=== PATIENT | male | born 1955 | race Caucasian/White ===

== ENCOUNTER 2016-07-10 08:14 | Outpatient (CLI) | payer BC ==
[2014-08-05 21:08] VITALS: BP 120/69
[2016-07-10 11:15] LABS: eGFR (African) > 60; eGFR (Non-African) > 60
--- NOTE | 2016-07-11 07:37 | Diagnostic Imaging Report ---
[facility] [address] [facility].[address] [address] Report Submission Date: Jul 10, 2016 4:36:10 PM GOODWILL AMBASSADOR Patient Study Name: JAQUI WITT Date: Jul 10, 2016 11:20:00 AM GOODWILL AMBASSADOR Modality Type: CT\SR Gender: M Description: CT ABD & PELVIS W/ CON : 51 Institution: [facility] Physician: DARIUSZ PRIETO MD Computed tomography of the abdomen and pelvis with contrast History: Abdominal patent renal artery stenosis Findings: Transverse abdomen and pelvis sections are obtained after intravenous omnipaque 350. Calcified right thoracic granulomas, septal occlusion device, calcified splenic granulomas, partial gallbladder contraction, left renal peripelvic cyst, and normal appendix are observed. The liver, spleen, pancreas, adrenals, and kidneys are otherwise normal. Bowel loops exhibit normal caliber and wall thickness. No acute abnormality is observed in the abdomen. Moderate colonic stool is present. Pelvic sections reveal moderate sigmoid colon stool and unremarkable urinary bladder. Prostate calcifications are observed. The seminal vesicles are unremarkable. No acute pelvic abnormality is identified. Impression: 1. Moderate colonic stool. 2. Septal occlusion device. 3. No acute abnormality is observed. Electronically signed on Jul 10, 2016 4:36:10 PM GOODWILL AMBASSADOR by: Antoine BUTLER
== END 2016-07-10 08:15 ==
LOC: RAD 08:14
PROVIDERS: ATTEND Family Medicine
DX: R10.10 Upper abdominal pain, unspecified (principal)
CPT/HCPCS: 74177; 82565; Q9966; A9698

== ENCOUNTER 2016-07-18 08:27 | Day surgery (SDC) | payer BC ==
[2014-08-05 21:08] VITALS: BP 120/69
[~2016-07-18 08:27] MED LIST: LIDOCAINE HCL/PF 2% 100 MG/5 ML VIAL IJ ONE; NORMAL SALINE 1,000 ML IV.SOLN IV ONE; PROPOFOL 200 MG/20 ML VIAL IV ONE; SALINE FLUSH 10 ML DISP.SYRIN IVF ONE; ePHEDrine SULFATE 50 MG/1 ML IVP ONE
--- NOTE | 2016-07-18 15:04 | Operative Note ---
SURGEON: Yon Marinelli MD ANESTHESIA: MAC anesthesia. ESTIMATED BLOOD LOSS: None. PREOPERATIVE DIAGNOSES: 1. History of colon polyps. 2. Change in bowel habits. POSTOPERATIVE DIAGNOSIS: Normal colonoscopy. PROCEDURE PERFORMED: Colonoscopy to cecum. DESCRIPTION OF PROCEDURE: Patient was brought to the endoscopy suite and placed in the left lateral decubitus position. A rectal examination was performed which was normal. The colonoscope was inserted and passed easily to the cecum. The appendiceal orifice and ileocecal valve were identified. The prep was adequate. There was excellent visualization with washing. The colonoscope was slowly retracted being careful to inspect all srinivasan. No polyps or other lesions were noted. The colonoscope was removed. FINDINGS: Normal colonoscopy. RECOMMENDATIONS: I recommend a repeat colonoscopy in 5 years due to his history of colon polyps. CARRIE
== END 2016-07-18 08:30 ==
LOC: OPSURG 08:27
PROVIDERS: ATTEND Colon & Rectal Surgery
DX: Z86.010 Personal history of colon polyps (principal); R19.4 Change in bowel habit
CPT/HCPCS: 45378; J2001; J2704; J7030; S1016

== ENCOUNTER 2016-08-06 18:19 | Emergency (ER) | payer BC ==
--- NOTE | 2016-08-06 18:45 | ED Physician Documentation ---
Abdominal Pain - HISTORIAN Historian: patient - HPI Stated Complaint: abd pain Onset: hours (12 hours) Duration: waxing, waning Timing: still present Context: denies: out of country travel, bad food Severity: moderate Quality: pain Associated Symptoms: fever, nausea. denies: chills, vomiting, coffee ground emesis, bloody emesis, diarrhea, bloody stools, grossly bloody stools Exacerbated by: nothing Relieved by: nothing Further Comments: yes (Patient states that he has been having some right groin pain with radiation into the right teticle and into his back. No precipitating factor noted. No modifying factors noted. No hematuria noted. ? mild fever, no chill. Has been nauseated some, has had some diaphoresis at times, no vomiting, no diarhea or constipation noted. Colonsoscopy done 2 week ago and was normal.) - ROS CONST: no problems - SOCIAL HX Smoking History: non-smoker Alcohol Use: none Drug Use: none - FAMILY HX Family History: none, no significant history - REVIEWED ASSESSMENTS Nursing Assessment Reviewed: Yes Vitals Reviewed: Yes <Maixm Tripp - Last Filed: 08/06/16 18:43> - HPI Chief Complaint: Abdominal Pain - ROS CONST: no problems GI/: other (diarrhea, RLQ pain) CVS/RESP: none EYES/ENT: none MS/SKIN/LYMPH: none - SOCIAL HX Smoking History: non-smoker - FAMILY HX Family History: none - PAST HX Past History: other (DM, Heart Dz, HLD, HTN, GERD) Surgeries/Procedures: other (PFO closure, ortho surgery) <Quintin Sloan - Last Filed: 08/07/16 00:55> - PAST HX Home Medications: Ambulatory Orders Medication Instructions Recorded Tamsulosin HCl [Flomax] 0.4 mg PO DAILY #90 mg 07/02/12 Esomeprazole Magnesium [Nexium] 40 mg PO DAILY 08/12/14 Nitroglycerin 0.4 mg SL PRN u2 09/04/15 Ciprofloxacin HCl [Cipro] 500 mg PO BID #14 tablet 08/06/16 metroNIDAZOLE [Flagyl] 500 mg PO Q8H #21 tablet 08/06/16 Allergies/Adverse Reactions: Allergies Allergy/AdvReac Type Severity Reaction Status Date / Time latex Allergy Verified 08/05/14 18:01 morphine Allergy Verified 08/05/14 18:01 Contrast dye Allergy Uncoded 08/05/14 18:01 - VITAL SIGNS Vital Signs: Vital Signs Temp Pulse Resp BP Pulse Ox 98.6 F 62 16 166/90 96 08/06/16 22:41 08/06/16 18:44 08/06/16 18:44 08/06/16 18:44 08/06/16 18:44 (Maxim Tripp) (Quintin Sloan) Progress <Maxim Tripp - Last Filed: 08/06/16 18:43> - EKG/XRAY/CT XRAY: abdomen (Nonspecific unremarkable abdominal bowel gas pattern.) <Quintin Sloan - Last Filed: 08/07/16 00:55> - Progress Progress: 1 L IVF Zofran 4 mg IV Toradol 30 mg IV pain improved CT abd/pelvis w/o contrast: No evidence of renal or ureteral calculi. Left renal peripelvic cysts without hydronephrosis. Normal appendix. Sigmoid colon diverticulosis. Possible early diverticulitis. Rx Ciprofloxacin 500 mg. Take one tablet by mouth every 12 hrs for 7 days. Rx Metronidazole 500 mg. Take one tablet by mouth every 8 hrs for 7 days. Do not drink alcohol while using Metronidazole. (Quintin Sloan) Abdominal Pain Physical Exam - Physical Exam General Appearance: moderate distress EENT: eye inspection normal, ENT inspection normal, pharynx normal NECK: normal inspection, supple RESPIRATORY: no resp distress, chest non-tender, breath sounds normal CVS: reg rate & rhythm, heart sounds normal ABDOMEN: soft, normal bowel sounds, tenderness (RLQ) MALE GENITAL: no hernia BACK: normal inspection, CVA tenderness (R) (mild) SKIN: warm/dry, normal color EXTREMITIES: non-tender, normal range of motion, no evidence of injury NEURO: oriented X3, motor nml, sensation nml <Quintin Sloan - Last Filed: 08/07/16 00:55> - Physical Exam Vital Signs: Vital Signs Temp Pulse Resp BP Pulse Ox 98.6 F 62 16 166/90 96 08/06/16 22:41 08/06/16 18:44 08/06/16 18:44 08/06/16 18:44 08/06/16 18:44 (Maxim Tripp) (Quintin Sloan) Discharge <Maxim Tripp - Last Filed: 08/06/16 18:43> Decision to Admit: NO Decision Time: 22:21 <Quintin Sloan - Last Filed: 08/07/16 00:55> Clincal Impression: possible early diverticulitis Abdominal pain Qualifiers: Abdominal location: right lower quadrant Qualified Code(s): R10.31 - Right lower quadrant pain Prescriptions: Ciprofloxacin HCl [Cipro] 500 mg PO BID #14 tablet metroNIDAZOLE [Flagyl] 500 mg PO Q8H #21 tablet Referrals: Maxim Tripp MD [Primary Care Provider] - Home Medications: Ambulatory Orders Tamsulosin HCl [Flomax] 0.4 mg PO DAILY #90 mg 07/02/12 Esomeprazole Magnesium [Nexium] 40 mg PO DAILY 08/12/14 Nitroglycerin 0.4 mg SL PRN u2 09/04/15 Ciprofloxacin HCl [Cipro] 500 mg PO BID #14 tablet 08/06/16 metroNIDAZOLE [Flagyl] 500 mg PO Q8H #21 tablet 08/06/16 Condition: Stable Disposition: 01 HOME, SELF-CARE
[2016-08-06 18:49] VITALS: BP 166/90
[2016-08-06 19:07] LABS: BASOPHILS % 0.3 (0.0-1.5); EOSINOPHILS % 0.6 % (0.0-6.8); LYMPHOCYTES # 3.4 # k/uL (0.6-4.0); MEAN CORPUSCULAR HEMOGLOBIN 29.8 pg (28.0-34.0); MONOCYTES # 0.8 # k/uL (0.0-0.9); MONOCYTES % 6.5 % (0.0-11.0); NEUTROPHILS # 8.4 # k/uL (1.4-7.7)
[2016-08-06 19:16] LABS: eGFR (African) > 60; eGFR (Non-African) > 60
[2016-08-06] MEDS ORDERED: 0.9 % SODIUM CHLORIDE 1,000 ML IV ONE (19:47)
[2016-08-06] MEDS ORDERED: KETOROLAC TROMETHAMINE 30 MG/1ML VIAL IVP ONE (20:19)
[2016-08-06] MEDS ORDERED: ONDANSETRON HCL/PF 4 MG/ 2ML VIAL IVP ONE (20:20)
--- NOTE | 2016-08-06 21:51 | Diagnostic Imaging Report ---
AKIAR CASILLAS [facility] [address] [facility] [address] [place] [address]. [address] Report Submission Date: Aug 06, 2016 9:21:02 PM SENSITIZER Patient Study Name: JAQUI WITT Date: Aug 06, 2016 7:53:36 PM SENSITIZER Modality Type: CR Gender: M Description: ABDOMEN : 51 Institution: [facility] Physician: AKIRA CASILLAS Abdomen KUB Exam: August 06, 2016. Clinical history: Right lower quadrant abdominal pain. Findings: There is underpenetration of the pelvis. The overall bowel gas pattern is nonspecific and unremarkable. Gas and stool is present in the colon. There is scattered small bowel gas that is nondilated. No air-fluid levels are identified. The central pelvis is poorly visualized due to radiographic technique. Impression: Nonspecific unremarkable abdominal bowel gas pattern. Electronically signed on Aug 06, 2016 9:21:02 PM SENSITIZER by: French BUTLER
[2016-08-06 22:09] LABS: APPEARANCE,URINE Clear (CLEAR); COLOR,URINE Yellow (YELLOW); OCCULT BLOOD,URINE Negative (NEGATIVE); UROBILINOGEN URINE 0.2 Eu (0.2-1.0)
[2016-08-06] MEDS ORDERED: CIPROFLOXACIN HCL 500 MG TABLET PO ONE (22:14)
[2016-08-06] MEDS ORDERED: metroNIDAZOLE 500 MG TABLET PO ONE (22:15)
--- NOTE | 2016-08-06 22:53 | Diagnostic Imaging Report ---
AKIRA CASILLAS [facility] [address] [facility] [address] [place], [place]. [address] Report Submission Date: Aug 06, 2016 9:45:37 PM ANALYST COMPETITIVE INTELLIGENCE Patient Study Name: JAQUI WITT Date: Aug 06, 2016 8:44:17 PM ANALYST COMPETITIVE INTELLIGENCE Modality Type: CT\SR Gender: M Description: CT ABD & PELVIS W/O CO : 51 Institution: [facility] Physician: AKIRA CASILLAS KAVIN CT abdomen and pelvis without contrast Date of study: July 29, 2016. CLINICAL HISTORY: RLQ PAIN. PT ALLERGIC TO CONTRAST DYE. (Hx) / RLQ PAIN, RADIATION TO GROIN (DICOM Hx) TECHNIQUE: 1.3 mm contiguous axial images of the abdomen and pelvis non contrast. FINDINGS: A right lower lobe lung granuloma is present. There is a peripheral area of right lower lobe pleural thickening or pleural fat. An ASD closure device is noted in the heart. Abdomen: The liver, pancreas and spleen are normal in appearance. The gallbladder is unremarkable. The kidneys are normal in size with bilateral perinephric scarring. There is no evidence of renal or ureteral calculi identified. Left renal peripelvic cysts are present. No hydronephrosis or perinephric stranding is evident. The aorta is normal in caliber. The small and large bowel are nondistended. There is no evidence of free air or free fluid. A fat containing umbilical hernia is noted. Pelvis: The small and large bowel remain normal in appearance. The distal ureters and bladder are normal in appearance. There is no evidence of distal ureteral or intravesicular calculi. The appendix is normal. There is no evidence of free air or free fluid. Scattered sigmoid colon diverticulosis is present. Calcifications are noted in the prostate. The remaining pelvic structures are within normal limits and the bones of the pelvis are intact. L4/ L5 and L5/S1 disc bulging is noted. IMPRESSION: No evidence of renal or ureteral calculi. Left renal peripelvic cysts without hydronephrosis. Normal appendix. Sigmoid colon diverticulosis. Electronically signed on Aug 06, 2016 9:45:37 PM ANALYST COMPETITIVE INTELLIGENCE by: French BUTLER
== END 2016-08-06 22:40 | disposition home or self-care (01) ==
LOC: ED 18:19
DX: R10.31 Right lower quadrant pain (principal)
CPT/HCPCS: 74000; 74176; 80053; 81002; 85025; J1885; J2405; J7030; 96361; 96374; 96375; 99284; S1016

== ENCOUNTER 2017-01-30 07:12 | Day surgery (SDC) | payer BC ==
[2017-01-30] MEDS ORDERED: SALINE FLUSH 10 ML DISP.SYRIN IVF ONE (08:00)
[2017-01-30] MEDS ORDERED: LACTATED RINGERS 1,000 ML IV.SOLN IV ONE (08:00)
[2017-01-30] MEDS ORDERED: PROPOFOL 200 MG/20 ML VIAL IV ONE (08:00)
--- NOTE | 2017-02-02 12:07 | Operative Note ---
SURGEON: Yon Marinelli MD ANESTHESIA: MAC anesthesia. ESTIMATED BLOOD LOSS: None. FINDINGS: Mild gastritis, otherwise, normal EGD. COMPLICATIONS: None. PREOPERATIVE DIAGNOSIS: Abdominal pain. POSTOPERATIVE DIAGNOSIS: Mild gastritis. PROCEDURE PERFORMED: Esophagogastroduodenoscopy (EGD) with biopsy. INDICATIONS FOR PROCEDURE: This is a 61-year-old man who has chronic abdominal pain and bloating. He had a normal colonoscopy. He now presents for an EGD. DESCRIPTION OF PROCEDURE: Patient was brought to the endoscopy suite and placed in the left lateral decubitus position. MAC anesthesia was administered by the digital marketing coordinator. The endoscope was inserted and passed easily to the second portion of the duodenum. The duodenum was normal. There was mild gastritis throughout the stomach. A biopsy was taken. The fundus was normal. The GE junction was normal and it was at 40 cm from the incisors. The esophagus was normal as well. The endoscope was removed. DISPOSITION: We will await biopsy results. cc: Dr. Maxim BUTLER
== END 2017-01-30 07:13 ==
LOC: OPSURG 07:12
PROVIDERS: ATTEND Colon & Rectal Surgery
DX: K29.60 Other gastritis without bleeding (principal)
CPT/HCPCS: 43239; 88305; J2704; J7120; S1016

== ENCOUNTER 2017-07-24 15:57 | Outpatient (CLI) | payer OTHER ==
[2017-07-24 17:02] LABS: eGFR (African) > 60; eGFR (Non-African) > 60
--- NOTE | 2017-07-24 18:59 | Diagnostic Imaging Report ---
IDA ARZOLA [facility] [address] [facility] [address] [address] Report Submission Date: Jul 24, 2017 4:32:02 PM SEAMER PANTY HOSE Patient Study Name: JAQUI WITT Date: Jul 24, 2017 4:13:45 PM SEAMER PANTY HOSE Modality Type: CR Gender: M Description: CHEST : 51 Institution: [facility] Physician: IDA ARZOLA Examination: PA and lateral chest. History: CXR, DYSPNEA ON EXERTION WITH OCCASIONAL CHEST PAIN X1 MONTH, NON SMOKER (Hx) / DYSPNEA ON EXERTION (DICOM Hx) / DYSPNEA ON EXERTION (Pt comments ) Comparison exam: None provided. Findings: PA lateral chest demonstrate a normal cardiac and mediastinal silhouette. Elevated right hemidiaphragm. Mild vascular calcifications involving aortic arch. No focal infiltrate. No blunting of the costophrenic margins. Right lower lung granuloma. Osseous structures are appropriate for age. Impression: No acute appearing pulmonary process. Electronically signed on Jul 24, 2017 4:32:02 PM SEAMER PANTY HOSE by: Cb BUTLER
== END 2017-07-24 16:00 ==
LOC: LAB 15:57
PROVIDERS: ATTEND Family Medicine
DX: E11.9 Type 2 diabetes mellitus without complications (principal); R06.09 Other forms of dyspnea
CPT/HCPCS: 36415; 71046; 80053; 80061; 82043; 83036; 85379

== ENCOUNTER 2017-11-12 14:54 | Outpatient (CLI) | payer OTHER ==
[2017-11-12 15:46] LABS: BASOPHILS % 0.3 (0.0-1.5); EOSINOPHILS % 0.7 % (0.0-6.8); MEAN CORPUSCULAR HEMOGLOBIN 29.8 pg (28.0-34.0); MEAN CORPUSCULAR VOLUME 90.1 fl (80.0-100.0); MONOCYTES % 5.3 % (0.0-11.0); NEUTROPHILS # 9.2 # k/uL (1.4-7.7)
[2017-11-12 16:03] LABS: eGFR (African) > 60; eGFR (Non-African) > 60
--- NOTE | 2017-11-12 16:52 | Diagnostic Imaging Report ---
FOREST LUND [facility] [address] [facility].[address] [address] Report Submission Date: Nov 12, 2017 3:38:31 PM CDT Patient Study Name: JAQUI WITT Date: Nov 12, 2017 3:19:46 PM CDT Modality Type: DX Gender: M Description: CHEST : 51 Institution: [facility] Physician: FOREST LUND PA and lateral chest History: CXR, FATIGUE, WORSENING X2 WEEKS, CHEST PAIN THAT COMES AND GOES, PERIPHERAL EDEMA (Hx) / Note time : 11/12/2017 4:33:22 PM User : Gita Metcalf CXR, FATIGUE, WORSENING X2 WEEKS, CHEST PAIN THAT COMES AND GOES, PERIPHERAL EDEMA (DICOM Hx) PA and lateral chest dated November 12, 2017 is without prior radiographs for comparison. The cardiomediastinal silhouette is within normal limits. Pulmonary vascularity is normal. Lungs are clear. Impression: No active disease. Electronically signed on Nov 12, 2017 3:38:31 PM CDT by: Joanna BUTLER
== END 2017-11-12 14:55 ==
LOC: LAB 14:54
PROVIDERS: ATTEND Physician Assistant
DX: R53.83 Other fatigue (principal); W57.XXXA Bitten or stung by nonvenomous insect and other nonvenomous arthropods, initial encounter; Y92.9 Unspecified place or not applicable; Y93.9 Activity, unspecified; Y99.9 Unspecified external cause status; T14.90XA Injury, unspecified, initial encounter
CPT/HCPCS: 36415; 71046; 80053; 83880; 84484; 85025; 86618; 86666; 86757

== ENCOUNTER 2017-12-09 14:19 | Outpatient (CLI) | payer OTHER | END 2017-12-09 14:21 | LOC: CARD 14:19 | PROVIDERS: ATTEND Internal Medicine Cardiovascular Disease | DX: I25.10 Atherosclerotic heart disease of native coronary artery without angina pectoris (principal); R07.9 Chest pain, unspecified; R00.2 Palpitations; I10 Essential (primary) hypertension; R60.0 Localized edema; E78.5 Hyperlipidemia, unspecified; E11.9 Type 2 diabetes mellitus without complications; E66.9 Obesity, unspecified; G47.30 Sleep apnea, unspecified; Z82.49 Family history of ischemic heart disease and other diseases of the circulatory system; Z91.81 History of falling | CPT/HCPCS: 99213 ==

== ENCOUNTER 2017-12-18 12:42 | Outpatient (CLI) | payer OTHER ==
--- NOTE | 2017-12-18 20:21 | Diagnostic Imaging Report ---
[facility] [place] [facility] [address] [facility] [address] [place], [place]. [address] Report Submission Date: Dec 18, 2017 1:34:35 PM CDT Patient Study Name: JAQUI WITT Date: Dec 18, 2017 12:55:00 PM CDT Modality Type: CT\SR Gender: M Description: CT BRAIN W/O CONTRAST : 51 Institution: [facility] [place] [facility] Physician: IDA ARZOLA Examination: CT head without contrast History: CT HEAD W/O, ACUTE INTRACTABLE HEADACHE, PT STATES HEADACHES X4-6 WEEKS, WORSEING, NO KNOWN INJURY (Hx) Comparison exam: None available Technique: Noncontrast head CT protocol. Findings: Ventricles and sulci are consistent for patient age. Cerebrocerebellar parenchyma demonstrates periventricular low attenuation consistent with small vessel disease. No evidence for parenchymal hemorrhage. No evidence for mass or mass effect. No midline shift. No extra axial fluid collections. Partial visualization of the paranasal sinuses, mastoid air cells, orbits, skull and scalp without gross irregularity. Impression: Age related changes. No acute parenchymal process. No hemorrhage. Electronically signed on Dec 18, 2017 1:34:35 PM CDT by: Cb BUTLER
== END 2017-12-18 13:00 ==
LOC: RAD 12:42
PROVIDERS: ATTEND Family Medicine
DX: R51 Headache (principal)
CPT/HCPCS: 70450

== ENCOUNTER 2018-01-07 07:50 | Outpatient (CLI) | payer OTHER | END 2018-01-07 07:52 | LOC: LAB 07:50 | PROVIDERS: ATTEND Internal Medicine Cardiovascular Disease | DX: I25.10 Atherosclerotic heart disease of native coronary artery without angina pectoris (principal) | CPT/HCPCS: 36415; 80061 ==

== ENCOUNTER 2018-01-13 14:29 | Outpatient (CLI) | payer OTHER | END 2018-01-13 14:30 | LOC: CARD 14:29 | PROVIDERS: ATTEND Internal Medicine Cardiovascular Disease | DX: I25.10 Atherosclerotic heart disease of native coronary artery without angina pectoris (principal); R07.9 Chest pain, unspecified; R00.2 Palpitations; I10 Essential (primary) hypertension; E78.5 Hyperlipidemia, unspecified; E11.9 Type 2 diabetes mellitus without complications; E66.9 Obesity, unspecified; G47.30 Sleep apnea, unspecified; Z86.79 Personal history of other diseases of the circulatory system | CPT/HCPCS: 99213 ==

== ENCOUNTER 2018-01-19 11:03 | Outpatient (CLI) | payer OTHER ==
--- NOTE | 2018-01-19 16:02 | Diagnostic Imaging Report ---
IDA ARZOLA [facility] [address] [facility] [address] [address] Report Submission Date: Jan 19, 2018 3:53:50 PM CDT Patient Study Name: JAQUI WITT Date: Jan 19, 2018 12:01:04 PM CDT Modality Type: DX Gender: M Description: CHEST : 51 Institution: [facility] Physician: IDA ARZOLA Examination: PA and lateral chest. History: Evaluate lung carlton. RIGHT SIDE RIB PAIN WITH UNKOWN INJURY X 1 WEEK (Hx) / Comparison exam: 12 November 2017 Findings: PA and lateral views of the chest demonstrates a normal cardiac and mediastinal silhouette. Elevated right hemidiaphragm. No focal infiltrate. No blunting of the costophrenic margins. Stable pulmonary granuloma. Osseous structures are appropriate for age. Impression: No acute pulmonary process. Electronically signed on Jan 19, 2018 3:53:50 PM CDT by: Cb BUTLER
--- NOTE | 2018-01-19 16:02 | Diagnostic Imaging Report ---
IDA ARZOLA [facility] [address] [facility].[address] [address] Report Submission Date: Jan 19, 2018 3:57:09 PM CDT Patient Study Name: JAQUI WITT Date: Jan 19, 2018 12:04:17 PM CDT Modality Type: DX Gender: M Description: BILATERAL RIBS : 51 Institution: [facility] Physician: IDA ARZOLA Examination: Plain film ribs bilateral History: RIGHT SIDE RIB PAIN WITH UNKOWN INJURY X 1 WEE (Hx) Findings: 6 views of the right and left ribs demonstrates normal cortical margins. No fracture or dislocation. Underlying parenchymal without abnormality. Acromioclavicular joint degenerative changes. Impression: No rib fracture/abnormality. Electronically signed on Jan 19, 2018 3:57:09 PM CDT by: Cb BUTLER
== END 2018-01-19 11:05 ==
LOC: LAB 11:03
PROVIDERS: ATTEND Family Medicine
DX: R07.89 Other chest pain (principal)
CPT/HCPCS: 71046; 71110

== ENCOUNTER 2018-02-02 11:35 | Outpatient (CLI) | payer OTHER ==
[2018-02-02 12:22] LABS: BASOPHILS % 0.8 (0.0-1.5); EOSINOPHILS % 3.6 % (0.0-6.8); MEAN CORPUSCULAR HEMOGLOBIN 30.2 pg (28.0-34.0); MEAN CORPUSCULAR VOLUME 87.9 fl (80.0-100.0); NEUTROPHILS # 3.6 # k/uL (1.4-7.7)
--- NOTE | 2018-02-02 14:00 | Diagnostic Imaging Report ---
IDA ARZOLA [facility] [address] [facility].[address] [address] Report Submission Date: Feb 02, 2018 12:13:39 PM CDT Patient Study Name: JAQUI WITT Date: Feb 02, 2018 11:48:43 AM CDT Modality Type: DX Gender: M Description: CHEST : 51 Institution: [facility] Physician: IDA ARZOLA Examination: PA and lateral chest. History: Evaluate lung carlton. COUGH; FEVER X 10 DAYS (Hx) Comparison exam: 19 January 2018 Findings: PA and lateral views of the chest demonstrates a normal cardiac and mediastinal silhouette. Elevated right hemidiaphragm. No focal infiltrate. No blunting of the costophrenic margins. Stable pulmonary granuloma. Osseous structures are appropriate for age. Impression: No acute pulmonary process. Electronically signed on Feb 02, 2018 12:13:39 PM CDT by: Cb BUTLER
== END 2018-02-02 11:36 ==
LOC: LAB 11:35
PROVIDERS: ATTEND Family Medicine
DX: R50.9 Fever, unspecified (principal); R06.09 Other forms of dyspnea
CPT/HCPCS: 36415; 71046; 85025; 85379; 86308

== ENCOUNTER 2018-02-03 09:26 | Outpatient (CLI) | payer OTHER ==
[2018-02-03 10:45] LABS: eGFR (African) > 60; eGFR (Non-African) > 60
--- NOTE | 2018-02-03 13:30 | Diagnostic Imaging Report ---
IDA ARZOLA [facility] [address] [facility].[address] [address] Report Submission Date: Feb 03, 2018 11:26:51 AM CDT Patient Study Name: JAQUI WITT Date: Feb 03, 2018 10:52:11 AM CDT Modality Type: CT\SR Gender: M Description: CT PE CHEST : 51 Institution: [facility] Physician: IDA ARZOLA CT chest PE protocol History: Short of breath. Elevated D-dimer Technique: Helically acquired images were obtained through the chest following bolus administration of IV contrast using pulmonary embolism protocol. 3D MIPS were obtained. Findings: No filling defects are identified within the pulmonary arteries to suggest pulmonary embolism. The thoracic aorta is normal in caliber. There is no pericardial or pleural effusion. The liver is diffusely low in attenuation consistent with diffuse hepatic steatosis. Adrenal glands are normal. There is no mediastinal or hilar lymphadenopathy. Small calcified lymph nodes are present consistent with old granulomatous disease. There is a calcified right middle lobe granuloma. Otherwise, the right lung is clear. At the left upper lobe, intermixed with pulmonary vessels, there is a small and relatively nodular focus measuring approximately 6 mm. Otherwise, the left lung is clear. Impression: Old granulomatous disease. Small, 6 mm noncalcified nodular focus at the left upper lobe (see image 30 of 141). Six-month follow-up chest CT would be recommended in this regard per Fleischner 2017 criteria. Hepatic steatosis. Electronically signed on Feb 03, 2018 11:26:51 AM CDT by: Joanna BUTLER
--- NOTE | 2018-02-03 13:37 | Diagnostic Imaging Report ---
IDA ARZOLA [facility] [address] [facility].[address] [address] Report Submission Date: Feb 03, 2018 1:10:56 PM CDT Patient Study Name: JAQUI ALY Date: Feb 03, 2018 12:39:14 PM CDT MRN: [id number] Modality Type: US Gender: M Description: [facility] : 51 Institution: [facility] Physician: IDA ARZOLA Unilateral left lower extremity venous duplex History: Burning sensation along the lateral calf. Duplex and color flow imaging was performed through the left lower extremity femoral popliteal venous system revealing no evidence for deep venous thrombosis from the common femoral vein to the popliteal vein. There is normal compression and normal augmentation. The calf veins are not well visualized. Ultrasound through the area of burning sensation along the lateral left calf reveals no ultrasonographically apparent abnormality. Impression: The calf veins are not well visualized. Otherwise, no evidence for deep venous thrombosis. No abnormalities are identified sonographically in the area of burning sensation along the left lateral calf. Electronically signed on Feb 03, 2018 1:10:56 PM CDT by: Joanna BUTLER
== END 2018-02-03 09:27 ==
LOC: RAD 09:26
PROVIDERS: ATTEND Family Medicine
DX: R06.09 Other forms of dyspnea (principal); R50.9 Fever, unspecified; M79.605 Pain in left leg
CPT/HCPCS: 36415; 71275; 80048; 93971; Q9967

== ENCOUNTER 2018-05-11 10:22 | Outpatient (CLI) | payer OTHER ==
[2018-05-11 11:36] LABS: eGFR (Non-African) > 60
== END 2018-05-11 10:23 ==
LOC: LAB 10:22
PROVIDERS: ATTEND Family Medicine
DX: R10.84 Generalized abdominal pain (principal)
CPT/HCPCS: 36415; 80053; 83690

== ENCOUNTER 2018-05-18 10:09 | Outpatient (CLI) | payer OTHER | END 2018-05-18 10:11 | LOC: LAB 10:09 | PROVIDERS: ATTEND Family Medicine | DX: A77.0 Spotted fever due to Rickettsia rickettsii (principal) | CPT/HCPCS: 36415; 86757 ==

== ENCOUNTER 2018-06-30 13:55 | Outpatient (CLI) | payer OTHER ==
--- NOTE | 2018-06-30 14:42 | Diagnostic Imaging Report ---
IDA ARZOLA [facility] [address] [facility].[address] [address] Report Submission Date: Jun 30, 2018 2:31:43 PM TRAVEL COUNSELOR [employer]OBILE [employer]UB Patient Study Name: JAQUI WITT Date: Jun 30, 2018 2:05:20 PM TRAVEL COUNSELOR [employer] Modality Type: DX Gender: M Description: CHEST : 51 Institution: [facility] Physician: IDA ARZOLA PA and lateral chest History: Cough PA and lateral chest dated June 30, 2018 is compared with February 02, 2018. The cardiomediastinal silhouette is within normal limits in size and configuration. Pulmonary vascularity is normal. There is no confluent infiltrate or pleural effusion. Impression: No acute cardiopulmonary process. Electronically signed on Jun 30, 2018 2:31:43 PM TRAVEL COUNSELOR [employer] by: Joanna BUTLER
[2018-06-30 15:21] LABS: eGFR (Non-African) > 60
[2018-06-30 16:00] LABS: EOSINOPHILS % 1.5 % (0.0-6.8); MEAN CORPUSCULAR HEMOGLOBIN 29.8 pg (28.0-34.0); MONOCYTES % 7.5 % (0.0-11.0)
[2018-06-30 16:01] LABS: BASOPHILS % 0.9 (0.0-1.5); NEUTROPHILS # 7.7 # k/uL (1.4-7.7)
== END 2018-06-30 13:57 ==
LOC: LAB 13:55
PROVIDERS: ATTEND Family Medicine
DX: R07.89 Other chest pain (principal); R05 Cough
CPT/HCPCS: 36415; 71046; 80053; 84484; 85025

== ENCOUNTER 2018-12-31 12:32 | Outpatient (CLI) | payer MEDICARE, OTHER ==
[2018-12-31 13:06] LABS: eGFR (Non-African) > 60
--- NOTE | 2018-12-31 19:44 | Diagnostic Imaging Report ---
IDA ARZOLA [facility] [address] [facility] [address] [place], [place]. [address] Report Submission Date: Dec 31, 2018 2:17:15 PM CDT Patient Study Name: JAQUI WITT Date: Dec 31, 2018 1:18:22 PM CDT Modality Type: CT\SR Gender: M Description: CT ABD PELVIS W/ CON : 51 Institution: [facility] Physician: IDA ARZOLA Examination: CT Abdomen/pelvis History: RLQ ABD PAIN FOR ABOUT A YEAR Comparison exams: Off 10 July 2016 Technique: CT Abdomen/pelvis with IV protocol. Findings: Liver a demonstrates diffuse low attenuation. No central lesion. Spleen, adrenals, pancreas, kidneys and gallbladder are without gross irregularity. No gallstone. No suspicious renal calcifications. Ureters are nondilated in their course through the abdomen and pelvis. No central calcifications. Bladder margin within normal limits. Prostate calcifications. Abdominal aorta without aneurysm. Mildperipheral atherosclerotic disease. Cardiac silhouette is not enlarged. No pericardial effusion. Bowel unopacified limiting evaluation. No abnormal dilation. Stool within the large bowel limiting sensitivity. No mesenteric inflammatory changes or free fluid. Appendix is visualized and is without inflammatory changes. Osseous structures appropriate for age. Lung bases without infiltrate. Right lung base granuloma. Hilar granuloma. No effusion. Impression: No acute upper abdominal organ inflammatory process. No abnormal bowel dilation or inflammation. Mild fatty infiltration of liver. No gallstone. No suspicious renal calcifications or abnormal ureteric dilation. No lung base consolidation or effusion. Electronically signed on Dec 31, 2018 2:17:15 PM CDT by: Cb BUTLER
== END 2018-12-31 12:34 ==
LOC: RAD 12:32
PROVIDERS: ATTEND Family Medicine
DX: E11.9 Type 2 diabetes mellitus without complications (principal); R10.31 Right lower quadrant pain
CPT/HCPCS: 36415; 74177; 82565

== ENCOUNTER 2019-06-17 12:15 | Outpatient (CLI) | payer MEDICARE, OTHER ==
--- NOTE | 2019-06-17 20:13 | Diagnostic Imaging Report ---
PATIENT MR#: [id number] PATIENT PATIENT NAME: JAQUI WITT DATE OF : 1955 REFERRING PHYSICIAN: Maxim Tripp EXAM DATE: 06/17/2019 ACCESSION NUMBER: [id number] EXAM DESCRIPTION: LT HIP 2VIEW COMPLETE CLINICAL HISTORY: LEFT HIP PAIN AND SORENESS AFTER FALLING ON HEAVY MACHINERY ABOUT 2 MONTHS AGO COMPARISON: No study for comparison is available at the time of interpretation. TECHNIQUE: DX left hip and AP pelvis, 2 views Osseous structures: The osseous structures are intact with no evidence of fracture. Chronic calcifica tions are noted adjacent to the greater trochanter. Joint spaces: The bones are well aligned, without dislocation. No articular surface abnormality is no tahmina. Soft tissues: There is normal appearance of the soft tissues with no radiopaque foreign body seen. IMPRESSION: Chronic soft tissue calcifications of the gluteal tendon insertions. No acute fracture. Read by: Dr. Sam Olmos Transcribed by: Sam Olmos Transcribed Date: 06/17/2019 8:11:57 PM Electronically signed by: Dr. Sam Olmos Date signed: 06/17/2019 8:12:14 PM
--- NOTE | 2019-06-17 20:32 | Diagnostic Imaging Report ---
PATIENT MR#: [id number] PATIENT PATIENT NAME: JAQUI WITT DATE OF : 1955 REFERRING PHYSICIAN: Maxim Tripp EXAM DATE: 06/17/2019 ACCESSION NUMBER: [id number] EXAM DESCRIPTION: KNEE 3 VIEWS CLINICAL HISTORY: PAIN IN LEFT KNEE AFTER FALL INJURY X2 WEEKS AGO. LACERATION DISTAL TO PATELLA. COMPARISON: No study for comparison is available at the time of interpretation. TECHNIQUE: DX left knee, 3 views Osseous structures: The osseous structures are intact with no evidence of acute fracture. There is a chronic appearing 1.5 cm calcification adjacent to the lateral femoral condyle along the expected course of the biceps femoris tendon. Traction enthesophytes noted on the anterior patella at the quadriceps tendon and patellar ligament i nsertions. Joint spaces: The bones are well aligned, without dislocation. No articular surface abnormality is no tahmina. Soft tissues: There is a moderate suprapatellar effusion. IMPRESSION: 1. No evidence of acute fracture. 2. 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 3. Calcification of the patellar tendon. 4. Traction enthesophytes on the anterior patella. 5. Moderate suprapatellar effusion. Consider MRI if there is clinical concern for soft tissue derange ment. Read by: Dr. Sam Olmos Transcribed by: Sam Olmos Transcribed Date: 06/17/2019 8:30:31 PM Electronically signed by: Dr. Sam Olmos Date signed: 06/17/2019 8:31:40 PM
== END 2019-06-17 12:25 ==
LOC: RAD 12:15
PROVIDERS: ATTEND Family Medicine
DX: M25.552 Pain in left hip (principal); M25.562 Pain in left knee
CPT/HCPCS: 73562